=== PATIENT | male | born 1995 | race Caucasian/White ===

== ENCOUNTER 2021-03-31 14:11 | Observation (INO) ==
[~2021-03-31 14:11] MED LIST: 0.9 % SODIUM CHLORIDE 1,000 ML IV SCH; ONDANSETRON 4 MG/2 ML VIAL IV PRN; PIPERACILLIN SODIUM/TAZOBACTAM 3.375 GM in DEXTROSE 5% IN WATER 50 ML IV SCH
[2021-03-31] MEDS ORDERED: 0.9 % SODIUM CHLORIDE 2,000 ML IV ONE (14:44)
[2021-03-31] MEDS ORDERED: ONDANSETRON 4 MG/2 ML VIAL IV ONE (14:44)
--- NOTE | 2021-03-31 15:19 | Emergency Department Note ---
Nausea/Vomiting/Diarrhea HPI General Chief complaint: Nausea/Vomiting/Diarrhea Stated complaint: Vomiting Time Seen by Provider: 03/31/21 14:43 Source: patient Mode of arrival: ambulatory Limitations: no limitations History of Present Illness HPI Narrative: This is a 25-year-old male with a history of seizure disorder who was seen at [facility] yesterday for diagnosis of sepsis. He was supposed to come to the ER for direct admission as [facility] did not have any beds, but was feeling better so did not come urgently as was recommended. He comes in today now with ongoing complaints of nausea and vomiting for the last 72 hours with associated fevers/chills/sweats. Denies hematuria or dysuria. He does endorse dark stools that are both loose and formed. He is also endorsing some coffee-ground emesis with vomiting. He had a CT of the abdomen and pelvis without contrast yesterday that was negative for acute intraabdominal or intrapelvic pathology. Urine was negative. Laboratory data revealed a pH of 7.5 and a lactate of 1.9. He was noted to have an VIKAS with a creatinine of 2.0. His white blood cell count was significantly elevated at 34,500. Blood cultures are pending. He was given IV Zosyn x1 dose. Patient states he has been admitted for sepsis 2 times in the past. They believe this is related to a dental problem. He has not followed up with a dentist since that time. He does have multiple missing teeth, and a fractured tooth on the upper right jaw that is not draining fluid nor is it painful. He is concerned this may be source. Related Data Home Medications Medication Instructions Recorded Confirmed clonidine HCl 0.1 mg PO HS 03/31/21 03/31/21 cyclobenzaprine 10 mg PO BID 03/31/21 03/31/21 levetiracetam [Keppra] 1,000 mg PO DAILY 03/31/21 03/31/21 Allergies Allergy/AdvReac Type Severity Reaction Status Date / Time No Known Drug Allergies Allergy Verified 03/31/21 14:11 Review of Systems ROS ROS Narrative: Narrative: All systems ED: reviewed and negative except as stated. PFSH Narrative Patient History Narrative: Narrative: Medical/Surgical/Family History All Active Problems (Updated 03/31/21 @ 17:11 by Adore Parekh PA-C) Chronic dental infection (Acute) Nausea & vomiting (Acute) Anxiety (Acute) History of intravenous drug abuse (Acute) Sepsis (Acute) Social History Smoking Status: Current every day smoker Exam Narrative Narrative: General: AOx3, NAD, nontoxic appearing. Pleasant and conversant. HEENT: PERRLA, EOMI, normocephalic. Dry mucous membranes. Normal facies and poor dentition. No fluctuance or obvious abscesses. There is a fractured first right upper molar. Chest: Symmetric Respiratory: Lungs clear to auscultation bilaterally. No respiratory distress. Unlabored breathing. Heart: Regular rate and rhythm, no murmurs/clicks/rubs. Abdomen: Non distended, hypoactive bowel tones. There is tenderness to palpation through the epigastrium and the midline down to the suprapubic region. No organomegaly. Extremities: Warm and well perfused. No edema. DP 2+ bilaterally. No venous stasis. Neuro: No focal deficits. Cranial nerves II-XII normal. Skin: Warm dry, no rashes or lesions, no cyanosis. Psych: Normal mood and affect Heme/Lymph: No bruising General Limitations: no limitations Course Course Course Narrative: 24-year-old male presents with with sepsis after being seen at [facility] last night. He was signed out to the hospitalist for a direct admission; however, he did not come immediately because he was feeling better, but presents later today with ongoing symptoms. Reevaluation(s) Reevaluation #1: Recheck lactic acid, and CMP Start IV fluids and give 1 dose IV Zosyn Hospitalist has been contacted for admission; he also requests that I order a CT of the chest as this was not done at [facility]. Reevaluation #2: Lactic acid is 1.4. WBC is 22,700. CT of the chest without acute findings. Vital Signs Vital signs: Vital Signs Temperature 98.1 F 03/31/21 14:12 Pulse Rate 101 H 03/31/21 14:12 Respiratory Rate 16 03/31/21 14:12 Blood Pressure 127/80 03/31/21 14:12 Pulse Oximetry (%) 93 03/31/21 14:12 Temperature 98.9 F 03/31/21 19:39 Pulse Rate 87 03/31/21 21:31 Respiratory Rate 20 03/31/21 21:31 Blood Pressure 136/73 03/31/21 21:31 Pulse Oximetry (%) 97 03/31/21 21:31 [facility] Narrative Medical decision making narrative: Sepsis Abdominal pain Intractable nausea and vomiting Hypokalemia Patient has been signed out to hospitalist service for admission for sepsis. He is being given 40 mEq IV potassium for hypokalemia. Lab Data Result diagrams: 03/31/21 14:51 03/31/21 14:51 Labs: Lab Results 03/31/21 03/31/21 03/31/21 Range/Units 14:51 14:51 14:51 WBC 22.7 H (4.5-11.0) K/mcL RBC 4.97 (4.50-5.90) M/mcL Hgb 15.4 (13.5-16.5) g/dL Hct 43.6 (41.0-55.0) % MCV 87.7 (80.0-100.0) fL MCH 31.0 (26.0-34.0) pg MCHC 35.3 (31.0-36.0) g/dL RDW 13.3 (11.5-14.5) % Plt Count 309 (140-440) K/mcL MPV 10.6 H (7.4-10.4) fL Neut % (Auto) 85.8 H (38.0-78.0) % Lymph % (Auto) 7.0 L (15.0-49.0) % [place] % (Auto) 7.1 (1.0-12.0) % Eos % (Auto) 0 (0.0-7.0) % Baso % (Auto) 0.1 (0.0-2.0) % Lymph # (Auto) 1.59 (1.50-4.80) K/mcL [place] # (Auto) 1.61 H (0.10-0.90) K/mcL Eos # (Auto) 0 (0.00-0.70) K/mcL Baso # (Auto) 0.02 (0.00-0.20) K/mcL Absolute Neutrophils 19.46 H (1.80-8.00) K/mcL ESR (0-15) mm/hr VBG Lactic Acid 1.5 (0.5-2.0) mmol/L Sodium 134 (133-145) mmol/L Potassium 2.5 L* (3.3-5.1) mmol/L Chloride 86 L (96-108) mmol/L Carbon Dioxide 35 H (22-30) mmol/L Anion Gap 13.0 (8.0-16.0) BUN 11 (6-20) mg/dL Creatinine 0.9 (0.7-1.2) mg/dL GFR Calculation 120 Glucose 126 H (70-105) mg/dL Calcium 8.3 L (8.6-10.4) mg/dL Total Bilirubin 0.4 (0.1-1.0) mg/dL AST 48 H (<40) U/L ALT 21 (<40) U/L Alkaline Phosphatase 72 (39-117) U/L C-Reactive Protein (0.03-0.80) mg/dL Total Protein 7.5 (5.9-8.4) gm/dL Albumin 4.7 (3.2-5.2) gm/dL Globulin 2.8 (2.2-3.7) gm/dL Albumin/Globulin Ratio 1.7 (1.0-2.3) Procalcitonin (<0.10) ng/mL 03/31/21 03/31/21 03/31/21 Range/Units 14:51 14:51 14:51 WBC (4.5-11.0) K/mcL RBC (4.50-5.90) M/mcL Hgb (13.5-16.5) g/dL Hct (41.0-55.0) % MCV (80.0-100.0) fL MCH (26.0-34.0) pg MCHC (31.0-36.0) g/dL RDW (11.5-14.5) % Plt Count (140-440) K/mcL MPV (7.4-10.4) fL Neut % (Auto) (38.0-78.0) % Lymph % (Auto) (15.0-49.0) % [place] % (Auto) (1.0-12.0) % Eos % (Auto) (0.0-7.0) % Baso % (Auto) (0.0-2.0) % Lymph # (Auto) (1.50-4.80) K/mcL [place] # (Auto) (0.10-0.90) K/mcL Eos # (Auto) (0.00-0.70) K/mcL Baso # (Auto) (0.00-0.20) K/mcL Absolute Neutrophils (1.80-8.00) K/mcL ESR 6 (0-15) mm/hr VBG Lactic Acid (0.5-2.0) mmol/L Sodium (133-145) mmol/L Potassium (3.3-5.1) mmol/L Chloride (96-108) mmol/L Carbon Dioxide (22-30) mmol/L Anion Gap (8.0-16.0) BUN (6-20) mg/dL Creatinine (0.7-1.2) mg/dL GFR Calculation Glucose (70-105) mg/dL Calcium (8.6-10.4) mg/dL Total Bilirubin (0.1-1.0) mg/dL AST (<40) U/L ALT (<40) U/L Alkaline Phosphatase (39-117) U/L C-Reactive Protein 2.60 H (0.03-0.80) mg/dL Total Protein (5.9-8.4) gm/dL Albumin (3.2-5.2) gm/dL Globulin (2.2-3.7) gm/dL Albumin/Globulin Ratio (1.0-2.3) Procalcitonin 0.12 H (<0.10) ng/mL Discharge Plan Patient/Caregiver Discharge Instructions Pt seen by CARE COORDINATION MANAGER/PA only: Yes Clinical Impression: Sepsis Patient Disposition: Xfer As Inpt ([facility]) Discharge Date/Time: 03/31/21 19:20
[2021-03-31 15:36] LABS: Basophils # (Auto) 0.02 K/mcL (0.00-0.20); Basophils % (Auto) 0.1 % (0.0-2.0); Eosinophils # (Auto) 0 K/mcL (0.00-0.70); Eosinophils % (Auto) 0 % (0.0-7.0); Hematocrit 43.6 % (41.0-55.0); Hemoglobin 15.4 g/dL (13.5-16.5); Lymphocytes # (Auto) 1.59 K/mcL (1.50-4.80); Mean Cell Volume 87.7 fL (80.0-100.0); Mean Corpuscular HGB Conc 35.3 g/dL (31.0-36.0); Mean Platelet Volume 10.6 fL (7.4-10.4); Monocytes # (Auto) 1.61 K/mcL (0.10-0.90); Monocytes % (Auto) 7.1 % (1.0-12.0); Neutrophils % (Auto) 85.8 % (38.0-78.0); Platelet Count 309 K/mcL (140-440); RBC 4.97 M/mcL (4.50-5.90); Red Cell Distribution Width 13.3 % (11.5-14.5); WBC 22.7 K/mcL (4.5-11.0)
[2021-03-31] MEDS ORDERED: PIPERACILLIN SODIUM/TAZOBACTAM 3.375 GM in DEXTROSE 5% IN WATER 50 ML IV ONE (15:37)
[2021-03-31 16:34] LABS: ALT/SGPT 21 U/L (<40); AST/SGOT 48 U/L (<40); Albumin 4.7 gm/dL (3.2-5.2); Albumin/Globulin Ratio 1.7 (1.0-2.3); Alkaline Phosphatase 72 U/L (39-117); Bilirubin,Total 0.4 mg/dL (0.1-1.0); Blood Urea Nitrogen 11 mg/dL (6-20); Calcium 8.3 mg/dL (8.6-10.4); Carbon Dioxide 35 mmol/L (22-30); Chloride 86 mmol/L (96-108); Globulin 2.8 gm/dL (2.2-3.7); Glomerular Filtration Rate 120; Glucose 126 mg/dL (70-105)
--- NOTE | 2021-03-31 16:39 | Cat Scan Report ---
CLINICAL INFORMATION: Sepsis COMPARISON: None TECHNIQUE: 0.625 mm axial slices were obtained from the lung apices through the bases without intravenous contrast. 2.5 mm Sagittal, coronal and axial reformatted images were processed and reviewed at bone, lung and soft tissue windows. 7 mm axial MIP images were also reconstructed to optimize pulmonary nodule detection.The exam was performed using radiation dose optimization techniques including, but not limited to, automated exposure control, adjustment of the mA and/or kV according to patient size and use of iterative reconstruction technique. FINDINGS: Mediastinal windows show the heart is normal in size and configuration: no plaque in the coronary arteries. Thymic remnant is normal. The noncontrast thoracic aorta and pulmonary arteries are normal in diameter. There is no adenopathy or fluid in the mediastinal or hilar regions. Esophagus is grossly normal. The thyroid is unremarkable. Pulmonary parenchymal windows show the lung volumes are mildly elevated with minimal wall thickening the bronchi suggesting asthma or bronchitis. Small regions of groundglass airspace disease in the paramediastinal lower lobes bilaterally. These likely represent fibrosis. The remaining lungs are clear - no solid or groundglass nodules. Pleural spaces are normal. Bones soft tissues the chest wall show no abnormality. IMPRESSION: 1. Small regions of groundglass airspace disease in the paramediastinal lower lobes - more prominent on the right. 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 Active infection would be less likely. If there is clinical suspicion for pneumonia, suggest two-view chest x-ray in the next 1-2 days. 2. Mild chronic bronchitis or asthma. Interpreted and Authenticated by: Georges Infante 03/31/21
[2021-03-31] MEDS ORDERED: POTASSIUM CHLORIDE 40 MEQ in DEXTROSE 5% IN WATER 500 ML IV ONE (16:57)
[2021-03-31] MEDS ORDERED: POTASSIUM CHLORIDE 20 MEQ/10 ML VIAL IV ONE (17:02)
[2021-03-31] MEDS ORDERED: ACETAMINOPHEN 650 MG/65 ML BAG IV PRN (19:24)
[2021-03-31] MEDS ORDERED: 0.9 % SODIUM CHLORIDE 1,000 ML IV SCH ×2 (19:24)
[2021-03-31] MEDS ORDERED: ACETAMINOPHEN 325 MG TABLET PO PRN (19:24)
[2021-03-31] MEDS ORDERED: MAGNESIUM SULFATE 2 GM/50 ML BAG IV PRN (19:24)
[2021-03-31] MEDS ORDERED: MELATONIN 3 MG TABLET PO PRN (19:24)
[2021-03-31] MEDS ORDERED: PROMETHAZINE 25 MG/ML VIAL IV PRN (19:24)
[2021-03-31] MEDS ORDERED: guaiFENesin/CODEINE 10 ML UDC PO PRN (19:24)
[2021-03-31] MEDS ORDERED: POTASSIUM CHLORIDE 20 MEQ PACKET PO PRN (19:24)
[2021-03-31] MEDS ORDERED: ONDANSETRON 4 MG/2 ML VIAL IV PRN (19:24)
[2021-03-31] MEDS ORDERED: POTASSIUM CHLORIDE 40 MEQ in DEXTROSE 5% IN WATER 500 ML IV PRN (19:24)
[2021-03-31] MEDS ORDERED: ONDANSETRON 4 MG ODT TABLET SL PRN (19:24)
[2021-03-31] MEDS ORDERED: PANTOPRAZOLE 40 MG VIAL IV ONE (20:09)
--- NOTE | 2021-03-31 20:28 | Internal Med History&Physical ---
HPI History of Present Illness Patient information: Note initiated : 03/31/21 at 8:22 pm Service Date, if different from initiated Date: [] Patient: Ant Morales a 25 y/o M admitted on 03/31/21 for Vomiting. Chief Complaint: [] History of present illness: Mr. Morales is a 25 year old M with a history of seizure disorder/anxiety/back pain who lives with his boyfriend and presented to [facility] last night with 1 week onset of progressive nausea, vomiting weakness. Over the last 24 hours he has noticed coffee-ground emesis and substernal discomfort. He was evaluated in the ER where work-up was consistent with severe sepsis white count over 35,000 but no clear source on imaging, creatinine at 2. Patient was started on Zosyn and antibiotics were initiated. Subsequently due to lack of availability of blood [facility] service was consulted for admission and transfer. I received phone signout from ER physician however patient after release from [place] ER failed to show up at [facility] for admission. Follow-up calls were made and patient presented to the ER this afternoon. He underwent a second diagnostic evaluation which revealed white count of 22,000 down from 35K, creatinine 0.9, potassium 2.[address] consistent with ground glass airspace disease lower lobes. Patient was started again on antibiotics and subsequently hospitalist service was consulted for admission. At the time of my evaluation patient is very anxious. Is requesting nicotine patch. He endorses history as above. Denies diarrhea, sick contacts, fever, chills, photophobia. He also denies illegal drug use. Review systems 10 point review system was performed and is negative except for ones discussed above PFSH PFSH All Active Problems (Updated 03/31/21 @ 17:11 by Adore Parekh PA-C) Chronic dental infection (Acute) Nausea & vomiting (Acute) Anxiety (Acute) History of intravenous drug abuse (Acute) Sepsis (Acute) MEDS/ALLERGIES Home Medications and Allergies Home Medications Medication Instructions Recorded Confirmed Type clonidine HCl 0.1 mg PO HS 03/31/21 03/31/21 History cyclobenzaprine 10 mg PO BID 03/31/21 03/31/21 History levetiracetam [Keppra] 1,000 mg PO DAILY 03/31/21 03/31/21 History Allergies Allergy/AdvReac Type Severity Reaction Status Date / Time No Known Drug Allergies Allergy Verified 03/31/21 14:11 EXAM Constitutional Vitals: Temp Pulse Resp BP Pulse Ox 98.1 F 74 13 134/92 97 03/31/21 19:28 03/31/21 19:28 03/31/21 19:28 03/31/21 19:28 03/31/21 19:28 Very anxious and intermittently tearful Head normocephalic Oral cavity moist No ear or nose discharge, bilateral nose piercing Eye no subconjunctival pallor, movement symmetrical S1-S2 tachycardia Nonlabored breathing Nondistended but tender suprapubic area Lower extremity no cyanosis clubbing or joint swelling Skin no suspicious lesion Psych anxious but no hallucination Neuro normal higher function on limited neuro exam DATA Data Completed and Pending Labs: Labs from last 24 hours 03/31/21 03/31/21 03/31/21 14:51 14:51 14:51 WBC RBC Hgb Hct MCV MCH MCHC RDW Plt Count MPV Neut % (Auto) Lymph % (Auto) [place] % (Auto) Eos % (Auto) Baso % (Auto) Lymph # (Auto) [place] # (Auto) Eos # (Auto) Baso # (Auto) Absolute Neutrophils ESR Pending VBG Lactic Acid Sodium Potassium Chloride Carbon Dioxide Anion Gap BUN Creatinine GFR Calculation Glucose Calcium Total Bilirubin AST ALT Alkaline Phosphatase C-Reactive Protein 2.60 H Total Protein Albumin Globulin Albumin/Globulin Ratio Procalcitonin 0.12 H 03/31/21 03/31/21 03/31/21 14:51 14:51 14:51 WBC 22.7 H RBC 4.97 Hgb 15.4 Hct 43.6 MCV 87.7 MCH 31.0 MCHC 35.3 RDW 13.3 Plt Count 309 MPV 10.6 H Neut % (Auto) 85.8 H Lymph % (Auto) 7.0 L [place] % (Auto) 7.1 Eos % (Auto) 0 Baso % (Auto) 0.1 Lymph # (Auto) 1.59 [place] # (Auto) 1.61 H Eos # (Auto) 0 Baso # (Auto) 0.02 Absolute Neutrophils 19.46 H ESR VBG Lactic Acid 1.5 Sodium 134 Potassium 2.5 L* Chloride 86 L Carbon Dioxide 35 H Anion Gap 13.0 BUN 11 Creatinine 0.9 GFR Calculation 120 Glucose 126 H Calcium 8.3 L Total Bilirubin 0.4 AST 48 H ALT 21 Alkaline Phosphatase 72 C-Reactive Protein Total Protein 7.5 Albumin 4.7 Globulin 2.8 Albumin/Globulin Ratio 1.7 Procalcitonin A/P Narrative A/P Narrative: * Severe sepsis unclear source-White count down from 35,022, cultures pending. Likely source aspiration pneumonia * Multifocal groundglass infiltrates likely aspiration-continue aspirin precautions/antibiotic coverage * Recurrent nausea vomiting with bloody emesis secondary [place]- [place].crystalloids and supportive treatment, continue PPI/antiemetics * Hypokalemia 2.5 start replacement IV and oral * Anxiety disorder continue benzodiazepine/clonidine * History of seizure disorder continue Keppra * Tobacco smoking and nicotine patch * Chronic back pain continue cyclobenzaprine Plan * Inpatient admission * Antibiotic coverage * Potassium replacement * PPI * Pre-existing medical condition management as above * Tobacco smoking cessation counseling Time Spent With Patient Time: Total time spent is greater than 50% in coordination of care (as documented) at patient's floor/unit and/or counseling patient:
[2021-03-31] MEDS ORDERED: LORazepam 2 MG/ML VIAL IV PRN (20:30)
[2021-03-31] MEDS ORDERED: SENNOSIDES/DOCUSATE SODIUM 1 TAB TABLET PO SCH (21:00)
[2021-03-31] MEDS ORDERED: levETIRAcetam 500 MG TABLET PO SCH (21:00)
[2021-03-31] MEDS ORDERED: CYANOCOBALAMIN (VITAMIN B-12) 500 MCG TABLET PO SCH (21:00)
[2021-03-31] MEDS ORDERED: cloNIDine HCL 0.1 MG TABLET PO SCH (21:00)
[2021-03-31] MEDS ORDERED: CYCLOBENZAPRINE 10 MG TABLET PO SCH (21:00)
[2021-03-31] MEDS ORDERED: 0.9 % SODIUM CHLORIDE 10 ML SYRINGE IV SCH (22:00)
[2021-04-01] MEDS ORDERED: PIPERACILLIN SODIUM/TAZOBACTAM 3.375 GM in DEXTROSE 5% IN WATER 50 ML IV SCH
[2021-04-01] MEDS ORDERED: PANTOPRAZOLE 40 MG VIAL IV SCH (07:30)
[2021-04-01] MEDS ORDERED: FOLIC ACID 1 MG TABLET PO SCH (09:00)
[2021-04-01] MEDS ORDERED: MULTIVIT,THER IRON,CA,FA & MIN 1 TABLET PO SCH (09:00)
[2021-04-01] MEDS ORDERED: THIAMINE 100 MG TABLET PO SCH (09:00)
== END 2021-03-31 21:35 | disposition left against medical advice (07) ==
LOC: ED 14:11 → ICU 14:11 → UNDODISIN 21:35
PROVIDERS: ADMIT Internal Medicine; ATTEND Internal Medicine